=== PATIENT | male | born 1945 | race Caucasian/White ===

== ENCOUNTER 2017-10-05 16:13 | Emergency (ER) | payer MEDICARE, OTHER ==
[2017-10-05] MEDS ORDERED: DIPHTH,PERTUSS(ACELL),TET VAC 0.5 ML VIAL IM ONE ×2 (16:45→16:54)
[2017-10-05 17:03] VITALS: BP 113/64
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
== END 2017-10-05 17:02 | disposition home or self-care (01) ==
LOC: ER 16:13
PROC: 0JQJ0ZZ Repair Right Hand Subcutaneous Tissue and Fascia, Open Approach (ICD-10-PCS; principal; 2017-10-05)
DX: S61.011A Laceration without foreign body of right thumb without damage to nail, initial encounter (principal); Z87.891 Personal history of nicotine dependence; I10 Essential (primary) hypertension; I25.2 Old myocardial infarction; Z95.5 Presence of coronary angioplasty implant and graft; W22.8XXA Striking against or struck by other objects, initial encounter; Y93.89 Activity, other specified; Z23 Encounter for immunization

== ENCOUNTER 2021-01-23 11:05 | Inpatient (IN) ==
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
[2021-01-23 12:02] LABS: Hematocrit 43.6 % (42.0-52.0); Hemoglobin 15.1 gm/dL (13.5-18.0); Mean Cell Volume 101.4 fl (78-100); Mean Corpuscular Hemoglobin 35.1 pg (27-31); Mean Corpuscular Hgb Conc 34.6 g/dl (32-36); Mean Platelet Volume 8.1 fl (8-11.3); Neutrophil # 2.6 K/mm3 (1.3-6.0); Neutrophil % 50.3 % (42-75.0); Platelet Count 169 K/mm3 (150-450); Red Cell Distribution Width 13.1 % (11.5-14.0); White Blood Count 5.2 K/mm3 (4.0-10.5)
[2021-01-23] MEDS ORDERED: ACETAMINOPHEN 1,000 MG/100 ML BTL IV ONE (12:02)
[2021-01-23 12:21] LABS: Albumin * 3.6 gm/dl (3.4-5.0); Anion Gap 9.2 mmol/L (6.8-13.8); BUN/Creatinine Ratio 6.8 (9.0-21.6); Ca. Corrected For Albumin 8.5 mg/dL (8.4-10.2); Calcium * 8.5 mg/dL (7.9-10.9); Potassium 4.2 mmol/L (3.4-4.6); Total Protein 6.9 gm/dL (6.2-8.2)
--- NOTE | 2021-01-23 12:38 | CONS ---
- Reason for consultation (1) Closed intertrochanteric fracture of left hip Date of Service: 01/23/21 Reason for Consultation:: Pritesh presents to the emergency department with left hip pain after slipping on the ice and falling. He was unable to bear weight. He denies any other injuries. He was evaluated by Dr. Tate and x-rays obtained confirmed a displaced intertrochanteric left hip fracture. He is being admitted to Dr. Le's medical service. He has no other complaints at this time. HPI - History of Present Illness Allergies/Adverse Reactions: Allergies No Known Drug Allergies Allergy (Verified 01/23/21 11:14) Home Medications: Home Medications Medication Instructions Recorded Last Taken Folic Acid 1 mg PO DAILY 03/09/14 Unknown Nitroglycerin [Nitrostat] 0.4 mg SUBLINGUAL PRN PRN 03/09/14 07/31/18 Losartan Potassium [Cozaar] 25 mg PO DAILY 10/06/16 Unknown Carbamazepine [Carbamazepine ER] 800 mg PO DAILY 10/05/17 Unknown levETIRAcetam [Levetiracetam] 250 mg PO BID 10/05/17 Unknown Aspirin 81 mg PO DAILY 07/31/18 Unknown adalimumab 40 mg/0.8 mL 40 mg SUBCUT Q2W 11/02/18 Unknown subcutaneous syringe kit diclofenac sodium 1 % topical gel 2 g TP QID 11/16/18 Unknown triamcinolone acetonide 0.1 % 1 applic TP BID 11/16/18 Unknown topical cream atorvastatin 80 mg tablet 40 mg PO DAILY tab 02/24/19 Unknown cetirizine 10 mg tablet 10 mg PO DAILY #30 tab 11/02/19 Unknown Cyclobenzaprine HCl [Flexeril] 10 mg PO TID PRN #15 tab 10/06/20 Unknown metoprolol succinate 100 mg 75 mg PO DAILY tab 10/12/20 Unknown tablet,extended release 24 hr Procedures Closure of skin and subcutaneous tissue of other sites (07/25/07) Excision of Liver, Percutaneous Approach, Diagnostic (04/25/17) Fasciotomy of hand (03/16/14) Linear repair of laceration of eyelid or eyebrow (08/08/07) Other fasciectomy of hand (09/15/08) Repair Right Hand Subcutaneous Tissue and Fascia, Open Approach (10/05/17) Rotator cuff repair (12/17/10) Physical Examination - Exam Narrative: Patient is lying on gurney. He is comfortable at this time. His left inguinal pain with logroll test. He has tenderness to palpation in the left inguinal area. He reports no knee discomfort with palpation left lower extremity pain or foot or ankle pain with palpation. He is able to plantarflex and dorsiflex the left ankle. He reports sensation intact to touch. He has got palpable pulses in the left lower extremity. X-rays reviewed show a displaced intertrochanteric left hip fracture. Vital Signs: Vital Signs - Last Taken Temp 36.1 C 01/23/21 11:05 Pulse 86 01/23/21 11:44 Resp 13 01/23/21 11:44 BP 160/88 H 01/23/21 11:44 Pulse Ox 96 01/23/21 11:44 O2 Oxygen Delivery Method Room Air - Results and Findings: Lab/Microbiology results last 24 hrs: Abnormal/Pending Laboratory Last 24 HRS 01/23/21 01/23/21 11:56 11:56 RBC 4.30 L MCV 101.4 H MCH 35.1 H Monocytes % 15.9 H Eosinophils % 3.7 H Sodium 128 L Plasma Sodium 128 L Chloride 95 L BUN/Creatinine Ratio 6.8 L Random Glucose 121 H Creatine Kinase 260 H - Assessments/Findings (1) Closed intertrochanteric fracture of left hip Diagnosis(s): Pending medical evaluation, plan is for closed reduction cephalomedullary internal fixation left intertrochanteric hip fracture. Patient have a light breakfast tomorrow morning. He will be n.p.o. after this with surgery tentatively late afternoon. He will need 6 weeks of anticoagulation postoperatively. Problem: Acute
[2021-01-23] MEDS ORDERED: NORMAL SALINE 1,000 ML IV ONE (12:42)
[2021-01-23] MEDS ORDERED: MORPHINE SULFATE 2 MG/ML DISP.SYRIN IV ONE (12:43)
[2021-01-23] MEDS ORDERED: MORPHINE SULFATE 4 MG/ML SYRG IV PRN (13:27)
[2021-01-23] MEDS ORDERED: HYDROcodone/ACETAMINOPHEN 1 EACH TABLET PO PRN (13:27)
[2021-01-23] MEDS ORDERED: ONDANSETRON HCL/PF 2 MG/ML VIAL IV PRN (13:27)
[2021-01-23] MEDS: MORPHINE SULFATE 2 MG/ML DISP.SYRIN IV PRN ×3 (14:23→20:54)
--- NOTE | 2021-01-23 17:24 | HP ---
Chief Complaint - Chief Complaint Date of Service: 01/23/21 Time of Service: 17:23 Chief Complaint: LLE pain, fall History of Present Illness: 75-year-old male with history of seizure disorder, coronary artery disease, hyperlipidemia, hypertension, hypothyroidism presented to the ER after a ground- level fall that resulted in left-sided hip pain. Patient was unable to bear weight at that time. Patient states he slipped on the ice which during these conditions is understandable. Did not hit his head, did not lose consciousness. No head or neck pain. In the ER x-ray showed him to have a left intertrochanteric hip fracture which was evaluated by our Ortho team who plan on repairing this tomorrow. Lab work fairly unremarkable for him, he does have a history of hyponatremia which was again apparent today. Patient was given some fluids which hopefully will bring this up but he will need this repeated in the morning tomorrow. Otherwise the rest of his blood work was unremarkable. He was negative for Covid. When examined, he was uncomfortable which was likely due to repositioning from the ER bed to the hospital bed. Patient is left lower extremity has normal sensory, normal blood flow. Externally rotated. Otherwise his vital signs are stable and he is in agreement with repairing this hip. Medical History (Last Reviewed 01/24/21 @ 08:03 by King Bradley CRNA) Bilateral cataracts (Chronic) Bilateral carotid bruits (Acute) Scrotal abscess (Acute) Resolving nicely with antibiotics. Dysuria (Chronic) Hyponatremia (Acute) 129 Labyrinthitis (Acute) Left shoulder pain (Chronic) Having CT arthrogram next week. At [facility]. UTI (urinary tract infection) (Acute) Prostatism (Chronic) Nocturia (Chronic) He is up multiple times per night because it is not adequately emptying his bladder. Seizure (Resolved) Myocardial infarction (Resolved) Dupuytren's contracture (Acute) Coronary artery disease (Chronic) Arthritis (Chronic) Hyperlipidemia (Chronic) Hypertension (Chronic) Surgical History: Surgical History (Last Reviewed 01/24/21 @ 08:03 by King Bradley CRNA) H/O transurethral resection of prostate Onset Date: ~08/04/19 Dr Delgadillo-[facility] H/O angioplasty Onset Date: ~2005 2005 Hx of colonoscopy Onset Date: ~2005 Normal Hx of hand surgery bilateral Hx of heart artery stent Onset Date: ~2005 Hx of shoulder surgery left shoulder x's 3: Dr. Shankar and x's 2 Dr. Perry Family History: Family History (Last Reviewed 01/24/21 @ 08:04 by King Bradley CRNA) Father Prostate cancer Mother Degenerative disc disease Social History: (Last Reviewed 01/23/21 @ 17:15 by Sushant Purvis RN) Social History: adopted: No foster care: No long-term: No Marital status: lives independently: No household members: spouse number of children: 2 caregiver/support person: No current occupational status: retired current occupation: retired Highest level of school completed/degree received: high school graduate Service: Yes branch: [employer] Tobacco: Smoking Status: Former smoker Smoking Status comment: quit 50 year Alcohol: alcohol intake: never Substance Use: substance use type: does not use Dietary Habits: caffeine: No Review Of Systems (GEN) - Review of Systems Generalized/Overall Review: Present: No Symptoms Reported EENTM: Present: No Symptoms Reported Respiratory: Present: No Symptoms Reported Cardiac: Present: No Symptoms Reported Abdominal: Present: No Symptoms Reported Genitourinary: Present: No Symptoms Reported Musculoskeletal: Present: Joint Pain - Left hip Neurological: Absent: Numbness, Tingling, Weakness Skin: Present: No Symptoms Reported Endocrine: Present: No Symptoms Reported Immunizations: IMMUNIZATION HX Immunizations Up to Date Yes History of Influenza Vaccine Yes Hx Pneumococcal Vaccination Yes Allergies/Adverse Reactions: Allergies Allergy/AdvReac Type Severity Reaction Status Date / Time No Known Drug Allergies Allergy Verified 01/23/21 11:14 Home Medications: HOME MEDICATIONS Folic Acid 1 mg PO DAILY 03/09/14 [Last Taken Unknown] Nitroglycerin [Nitrostat] 0.4 mg SUBLINGUAL PRN PRN 03/09/14 [Last Taken 07/31/18] Losartan Potassium [Cozaar] 25 mg PO DAILY 10/06/16 [Last Taken Unknown] levETIRAcetam [Levetiracetam] 250 mg PO BID 10/05/17 [Last Taken Unknown] Aspirin 81 mg PO DAILY 07/31/18 [Last Taken Unknown] adalimumab 40 mg/0.8 mL subcutaneous syringe kit 40 mg SUBCUT Q2W 11/02/18 [Last Taken Unknown] atorvastatin 80 mg tablet 80 mg PO HS tab 02/24/19 [Last Taken Unknown] metoprolol succinate 100 mg tablet,extended release 24 hr 75 mg PO DAILY tab 10/12/20 [Last Taken Unknown] carBAMazepine [Tegretol] 800 mg PO HS 01/23/21 [Last Taken Unknown] Exam - Exam Vital Signs: Vital Signs - Last Taken Temp 36.6 C 01/23/21 14:40 Pulse 87 01/23/21 14:40 Resp 20 01/23/21 14:40 BP 163/88 H 01/23/21 14:40 Pulse Ox 92 L 01/23/21 14:40 Constitutional: Present: Alert, Oriented x3, Cooperative, Mild distress - Due to left hip pain, Elderly ENT Exam: Present: hearing grossly normal Eye Exam: bilateral eye: normal inspection, EOMI Neck: Present: non-tender, full range of motion, supple Respiratory: Present: lungs clear, normal breath sounds Cardiovascular/Chest: Present: regular rate, rhythm, no murmur Peripheral Pulses: dorsalis-pedis (R): 2+, dorsalis-pedis (L): 2+ Abdomen: Present: soft, nontender, nondistended Extremity: Present: normal capillary refill, leg pain Skin Exam: Present: normal color, warm/dry Neurologic: Present: no motor/sensory deficits, normal mood/affect Appearance: Present: appropriate appearance, appropriate insight Eye contact: Present: cooperative, good eye contact Thoughts: Present: normal thought pattern, normal mood /affect Diagnostic Studies: Abnormal Lab Results 01/23/21 01/23/21 Range/Units 11:56 11:56 RBC 4.30 L (4.7-6.0) M/mm3 MCV 101.4 H (78-100) fl MCH 35.1 H (27-31) pg Monocytes % 15.9 H (0.0-9) % Eosinophils % 3.7 H (0.0-3.0) % Sodium 128 L (132-142) mmol/L Plasma Sodium 128 L (130-142) mmol/L Chloride 95 L (97-106) mmol/L BUN/Creatinine Ratio 6.8 L (9.0-21.6) Random Glucose 121 H (70-110) mg/dL Creatine Kinase 260 H (0-259) U/L Laboratory Results WBC 5.2 K/mm3 (4.0-10.5) 01/23/21 11:56 RBC 4.30 M/mm3 (4.7-6.0) L 01/23/21 11:56 Hgb 15.1 gm/dL (13.5-18.0) 01/23/21 11:56 Hct 43.6 % (42.0-52.0) 01/23/21 11:56 MCV 101.4 fl (78-100) H 01/23/21 11:56 MCH 35.1 pg (27-31) H 01/23/21 11:56 MCHC 34.6 g/dl (32-36) 01/23/21 11:56 RDW 13.1 % (11.5-14.0) 01/23/21 11:56 Plt Count 169 K/mm3 (150-450) 01/23/21 11:56 MPV 8.1 fl (8-11.3) 01/23/21 11:56 Immature Gran % (Auto) 0.40 % (0.001-0.429) 01/23/21 11:56 Immature Gran # (Auto) 0.02 K/mm3 (0.000-0.0310) 01/23/21 11:56 Neutrophils % 50.3 % (42-75.0) 01/23/21 11:56 Lymphocytes % 29.1 % (20-51) 01/23/21 11:56 Monocytes % 15.9 % (0.0-9) H 01/23/21 11:56 Eosinophils % 3.7 % (0.0-3.0) H 01/23/21 11:56 Basophils % 0.6 % (0.0-1.0) 01/23/21 11:56 Nucleated RBC % 0.0 k/mm3 (0-1) 01/23/21 11:56 Neutrophils # 2.6 K/mm3 (1.3-6.0) 01/23/21 11:56 Lymphocytes # 1.50 k/mm3 (1.5-3.5) 01/23/21 11:56 Monocytes # 0.8 k/mm3 (0.0-1.0) 01/23/21 11:56 Eosinophils # 0.2 k/mm3 (0.0-0.7) 01/23/21 11:56 Absolute Basophils 0.0 k/mm3 (0.0-0.1) 01/23/21 11:56 Sodium 128 mmol/L (132-142) L 01/23/21 11:56 Plasma Sodium 128 mmol/L (130-142) L 01/23/21 11:56 Potassium 4.2 mmol/L (3.4-4.6) 01/23/21 11:56 Chloride 95 mmol/L (97-106) L 01/23/21 11:56 Carbon Dioxide 28.0 mmol/L (24-32.6) 01/23/21 11:56 Anion Gap 9.2 mmol/L (6.8-13.8) 01/23/21 11:56 BUN 7 mg/dL (6-23) 01/23/21 11:56 Creatinine 1.03 mg/dL (0.4-1.4) 01/23/21 11:56 Est GFR (Non-Af Amer) 75 mL/min (60-130) 01/23/21 11:56 BUN/Creatinine Ratio 6.8 (9.0-21.6) L 01/23/21 11:56 Random Glucose 121 mg/dL (70-110) H 01/23/21 11:56 Calcium 8.5 mg/dL (7.9-10.9) 01/23/21 11:56 Calcium Adj for Albumin 8.5 mg/dL (8.4-10.2) 01/23/21 11:56 Total Bilirubin 1.0 mg/dL (0.0-1.1) 01/23/21 11:56 AST 41 U/L (0-48) 01/23/21 11:56 ALT 63 U/L (19-67) 01/23/21 11:56 Alkaline Phosphatase 123 U/L (50-170) 01/23/21 11:56 Creatine Kinase 260 U/L (0-259) H 01/23/21 11:56 Total Protein 6.9 gm/dL (6.2-8.2) 01/23/21 11:56 Albumin 3.6 gm/dl (3.4-5.0) 01/23/21 11:56 SARS-CoV-2 (PCR) Not detected (NotDetected) 01/23/21 12:00 Assessment/Plan - Narrative Narrative: Plan is for patient to go back for repair tomorrow early afternoon. Patient has been seen and evaluated by orthopedics and has no questions or concerns regarding that. From medical standpoint this is a necessity and so despite risk factors patient is cleared to undergo surgery. I do not anticipate any complications as this patient is in fairly good health and has had routine follow-up with cardiology and his previous PCPs. Patient's lab work shows him to not be anemic and he has normal kidney function. He is slightly hyponatremic though and we will repeat this in the morning. After reviewing his records this is not abnormal for him and he ranges anywhere from 128-132. After surgery we will address this and see if we can get him up just a little bit prior to discharge. Pain not adequately controlled on 2 mg of morphine. Will order 4 mg of morphine with 2 mg for breakthrough pain. I think patient will need 1 dose of the 4 mg and once he is comfortable he then can return back to the 2 mg. The rest of his medications have been reconciled and will be given tonight. Patient will be made n.p.o. early tomorrow morning, per Ortho he can have a light breakfast. He will get a bag of fluids after that. The rest of the medications will be held at that time Until following surgery. Patient has SCDs on a bed for DVT prophylaxis. Patient is regular diet ordered until n.p.o. status starts. Holding his aspirin. Nurse will call with any questions or concerns. So far his vital signs been stable. Patient questions and concerns discussed in detail and answered to his satisfaction. - Assessment/Plan (1) Closed intertrochanteric fracture of left hip Problem: Acute (2) Pre-Operative Examination Problem: Acute (3) Hyponatremia Problem: Acute (4) Seizure disorder Problem: Chronic (5) CAD (coronary artery disease) Problem: Chronic Qualifiers: Coronary Disease-Associated Artery/Lesion type: morongo artery [place] vs. transplanted heart: morongo heart Associated angina: without angina Qualified Code(s): I25.10 - Atherosclerotic heart disease of morongo coronary artery without angina pectoris (6) Hyperlipidemia Problem: Chronic Qualifiers: Hyperlipidemia type: pure hypercholesterolemia Qualified Code(s): E78.00 - Pure hypercholesterolemia, unspecified; E78.0 - Pure hypercholesterolemia (7) Hypertension Problem: Chronic Qualifiers: Hypertension type: essential hypertension Qualified Code(s): I10 - Essential (primary) hypertension (8) Hyperlipidemia Problem: Chronic Qualifiers: Hyperlipidemia type: mixed hyperlipidemia Qualified Code(s): E78.2 - Mixed hyperlipidemia
[2021-01-23] MEDS: MORPHINE SULFATE 4 MG/ML SYRG IV PRN (18:03)
[2021-01-23] MEDS: ROSUVASTATIN CALCIUM 20 MG TABLET PO SCH (20:47)
[2021-01-23] MEDS: carBAMazepine 200 MG TABLET PO SCH (20:48)
[2021-01-23] MEDS: levETIRAcetam 250 MG TABLET PO SCH (20:48)
[2021-01-23] MEDS: SENNOSIDES/DOCUSATE SODIUM 1 TAB TABLET PO SCH (20:54)
[2021-01-23] MEDS ORDERED: ACETAMINOPHEN 500 MG TABLET PO PRN (23:51)
[2021-01-24] MEDS: MORPHINE SULFATE 4 MG/ML SYRG IV PRN (02:07)
[2021-01-24] MEDS ORDERED: ceFAZolin SODIUM 1 GM VIAL IV PRN (06:00)
[2021-01-24] MEDS: RINGER'S SOLUTION,LACTATED 1,000 ML IV PRN ×3 (06:00→13:15)
--- NOTE | 2021-01-24 08:08 | ANES ---
Anesthesia Pre Procedure Eval Vitals/Labs: Last Vital Signs Temp 37 C 01/24/21 06:08 Pulse 92 01/24/21 06:08 Resp 18 01/24/21 06:08 BP 144/82 01/24/21 06:08 Pulse Ox 93 01/24/21 06:08 HOME MEDICATIONS Folic Acid 1 mg PO DAILY 03/09/14 [Last Taken Unknown] Nitroglycerin [Nitrostat] 0.4 mg SUBLINGUAL PRN PRN 03/09/14 [Last Taken 07/31/18] Losartan Potassium [Cozaar] 25 mg PO DAILY 10/06/16 [Last Taken Unknown] levETIRAcetam [Levetiracetam] 250 mg PO BID 10/05/17 [Last Taken Unknown] Aspirin 81 mg PO DAILY 07/31/18 [Last Taken Unknown] adalimumab 40 mg/0.8 mL subcutaneous syringe kit 40 mg SUBCUT Q2W 11/02/18 [Last Taken Unknown] atorvastatin 80 mg tablet 80 mg PO HS tab 02/24/19 [Last Taken Unknown] metoprolol succinate 100 mg tablet,extended release 24 hr 75 mg PO DAILY tab 10/12/20 [Last Taken Unknown] carBAMazepine [Tegretol] 800 mg PO HS 01/23/21 [Last Taken Unknown] Allergies/Adverse Reactions: Allergies Allergy/AdvReac Type Severity Reaction Status Date / Time No Known Drug Allergies Allergy Verified 01/23/21 11:14 - Planned Procedure Planned Procedure: Left hip fracture reduction/fixation Medication List Reviewed:: Yes Allergies Verified: Yes Medical History (Last Reviewed 01/24/21 @ 08:03 by King Bradley CRNA) Bilateral cataracts (Chronic) Bilateral carotid bruits (Acute) Scrotal abscess (Acute) Resolving nicely with antibiotics. Dysuria (Chronic) Hyponatremia (Acute) 129 Labyrinthitis (Acute) Left shoulder pain (Chronic) Having CT arthrogram next week. At [facility]. UTI (urinary tract infection) (Acute) Prostatism (Chronic) Nocturia (Chronic) He is up multiple times per night because it is not adequately emptying his bladder. Seizure (Resolved) Myocardial infarction (Resolved) Dupuytren's contracture (Acute) Coronary artery disease (Chronic) Arthritis (Chronic) Hyperlipidemia (Chronic) Hypertension (Chronic) Surgical History (Last Reviewed 01/24/21 @ 08:03 by King Bradley CRNA) H/O transurethral resection of prostate Onset Date: ~08/04/19 Dr Delgadillo-[facility] H/O angioplasty Onset Date: ~2005 2005 Hx of colonoscopy Onset Date: ~2005 Normal Hx of hand surgery bilateral Hx of heart artery stent Onset Date: ~2005 Hx of shoulder surgery left shoulder x's 3: Dr. Shankar and x's 2 Dr. Perry Family History (Last Reviewed 01/24/21 @ 08:04 by King Bradley CRNA) Father Prostate cancer Mother Degenerative disc disease - Family Anesthesia History Family History:: no untoward family reactions to anesthesia, no familial bleeding tendencies, no family history of clotting disorders, no family history of premature - Airway/Neck/Teeth Within Normal Limits:: Yes Teeth Condition: intact, poor condition Neck Exam: full range of motion Mallampatti Score: 3 Thyromental (T-M) distance: > 6 cm Mandibulo Hyoid distance: > 3 cm - Respiratory Respiratory Physical: lungs clear Smoking Status: Former smoker - quit 50 year Sleep Apnea currently treated: No Sleep Apnea by current assessment: No - Cardiovascular Cardiac History: hypertension Tolerate Activity: Poor Heart Sounds: S1 & S2, Regular - Gastrointestinal NPO since: 0 - Anesthesia Assessment and Plan ASA Class: PS, III Anesthesia Type Plan: Spinal
[2021-01-24 09:06] LABS: Anion Gap 9.8 mmol/L (6.8-13.8); BUN/Creatinine Ratio 5.6 (9.0-21.6); Calcium * 8.3 mg/dL (7.9-10.9); Carbon Dioxide 28.1 mmol/L (24-32.6); Estimated Creat Clear 71.5; Potassium 3.9 mmol/L (3.4-4.6)
[2021-01-24] MEDS: METOPROLOL SUCCINATE 25 MG TABLET.SA PO SCH (10:22)
[2021-01-24] MEDS: LOSARTAN POTASSIUM 50 MG TABLET PO SCH (10:22)
[2021-01-24] MEDS: levETIRAcetam 250 MG TABLET PO SCH ×2 (10:22→20:19)
[2021-01-24] MEDS ORDERED: NORMAL SALINE 20 ML VIAL ONE (11:10)
[2021-01-24] MEDS ORDERED: BUPIVACAINE HCL/PF 10 ML VIAL ONE (11:10)
[2021-01-24] MEDS ORDERED: PROPOFOL VIAL IV ONE (11:10)
[2021-01-24] MEDS ORDERED: MIDAZOLAM HCL/PF 5 MG/ML VIAL ONE (11:10)
--- NOTE | 2021-01-24 12:28 | OR ---
Operative Report - Dictated Report Narrative: Date: 01/24/2021 Surgeon: Dinesh Shetty M.D. Library Supervisor: Raad Chino PA-C (provided an essential set of skilled educated handset assisted with transfer, positioning, prepping, draping, placement of instruments, insertion of implants, irrigation, closure wounds, and placement of dressings all which could not be performed by the available surgical crew) Preoperative diagnosis: Closed left intertrochanteric femur fracture Postoperative diagnosis: Closed left intertrochanteric femur fracture Operations and procedures: 1. Closed reduction, cephalo-medullary fixation left intertrochanteric femur fracture 2. Intraoperative interpretation of radiographs Anesthesia: Spinal Specimens: None Estimated blood loss: 25 milliliters Retained implants: [employer] Trigen InterTAN 130 degree size 11.5 mm by 20 centimeter nail with 105 millimeter lag screw and 100 millimeter compression screw, with distal locking screw Complications: None Indications for procedure: Mr. Heredia is a 75-year-old gentleman who injured the left leg after ground- level fall in the community. They were admitted to the hospital after being evaluated in the emergency department. Once the medical provider felt that they were stable for surgical treatment, the risks and benefits alternatives were discussed. The risks of , blood clots, bleeding, infection, nerve/tendon/blood vessel injury, malunion, nonunion, failure of implants, painful implants, arthrosis, and need for additional procedures were discussed. The extremity was marked and consent was obtained on the floor. Procedure: After marking the operative extremity on the floor, the patient was taken to the operating room. A timeout was performed. IV antibiotics consisting of Ancef were administered. A spinal anesthetic was induced by anesthesia, and the patient was then placed onto a fracture table with a well-padded perineal post. The nonoperative leg was placed in a well-padded traction boot in slight extension without any traction with an SCD on the leg. The operative leg was placed in a well-padded traction boot. Longitudinal traction, internal rotation, and flexion were utilized in order to reduce the fracture. Preliminary images were attained utilizing C-arm in both the AP and lateral views. This confirmed that we had obtained adequate visualization of the fracture as well as reduction. Next the hip was then prepped and draped in a standard sterile fashion. Next the guidewire was placed percutaneously proximal to the greater trochanter to anastacia a starting point at the tip of the greater trochanter centered on the lateral view. This was passed down to the level below the lesser trochanter. A scalpel was utilized in order to dissect down to the greater trochanter in order to place the soft tissue protector down to bone. The entry drill was then placed down the proximal femur to the level of the lesser trochanter. The proper size nail was then selected and impacted into place. The outrigger was utilized in order to confirm the appropriate depth of the nail. Using the alignment device on the outrigger, an incision was made over the lateral femur. Sharp dissection was carried through the iliotibial band down to the proximal femur. The guidewire was placed into the femoral head in a center- center position on AP and lateral views. The tip-apex distance of less than 25 mm combined was obtained. Once we felt that we had placed a guidewire in the appropriate position, it was measured. Next the compression screw site was drilled through the lateral femoral cortex. This was then drilled down to the appropriate depth, again confirming that we are within the confines the bone. The derotational bar was then placed and the lag screw was drilled. The lag screw was then secured in place seating fully ensuring that we were within the confines of the bone. The compression screw was then inserted allowing for compression while releasing the traction on the leg. Using C-arm this was visualized to allow for compression across the fracture site. Once is felt that we had adequately stabilized the intertrochanteric fracture, the distal interlocking screw was placed in a dynamic position. It was confirmed to be the appropriate length and within the nail on both AP and lateral views. The nail was secured allowing for controlled compression and the outrigger was removed. The wounds were then thoroughly irrigated. Final images were obtained. The hip was placed through range of motion and showed no crepitance. The deep fascia was closed with 0 Vicryl, the subcutaneous tissue with 3-0 Vicryl, and the skin was closed with olga. Sterile dressings of Xeroform, 4 x 4, and tape were applied. All sponge, sharp, and instrument counts were correct prior to closing the wounds. The patient was then awoken and transferred to the postanesthesia care unit in stable condition.
[2021-01-24] MEDS ORDERED: MAGNESIUM HYDROXIDE 30 ML UDC PO PRN (12:29)
[2021-01-24] MEDS ORDERED: diphenhydrAMINE HCL 50 MG/ML VIAL IV PRN (12:29)
[2021-01-24] MEDS ORDERED: ZOLPIDEM TARTRATE 5 MG TABLET PO PRN (12:29)
[2021-01-24] MEDS ORDERED: MAG HYDROX/ALUMINUM HYD/SIMETH 30 ML UDC PO PRN (12:29)
--- NOTE | 2021-01-24 13:16 | ANES ---
Post Anesthesia Discharge - Transfer of Care Transfer of Care handoff given to nurse: Yes - Discharge from PACU Discharge from PACU when meets criteria: Yes
--- NOTE | 2021-01-24 13:27 | ANES ---
Post Anesthesia Assessment - Vital Signs Vitals: Last Vital Signs Temp 36.0 C 01/24/21 12:40 Pulse 82 01/24/21 13:25 Resp 14 01/24/21 13:25 BP 85/48 L 01/24/21 13:25 Pulse Ox 96 01/24/21 13:25 Airway Patency: Normal - Mental Status Level Of Consciousness: Awake - Pain Level Pain Score: 0 - N/V Assessment Nausea/Vomiting Presence: None Dehydration:: No
[2021-01-24] MEDS: ceFAZolin SODIUM 1 GM in DEXTROSE 5 % IN WATER 100 ML IV SCH ×4 (13:56→20:17)
[2021-01-24] MEDS: KETOROLAC TROMETHAMINE 15 MG/ML VIAL IV SCH ×2 (13:57→19:03)
[2021-01-24] MEDS: NORMAL SALINE 1,000 ML IV PRN ×2 (15:30→23:04)
[2021-01-24] MEDS: HYDROcodone/ACETAMINOPHEN 1 EACH TABLET PO PRN (17:06)
--- NOTE | 2021-01-24 18:33 | PN ---
Subjective - Date and Time Seen Date: 01/24/21 Time: 18:26 Subjective Narrative: Patient is very comfortable at this time. Surgery was successful and he states his pain is much better than it was prior to the repair. Patient feels well and is already asking home. Vital signs been stable. Patient's lab work from this morning showed his hyponatremia to be slightly worse. Patient started on normal saline at 150 an hour x2 bags. Kidney function is appropriate for this. We will also start salt tablets this evening. Patient will be started on Xarelto for his anticoagulation. Otherwise he has no concerns and feels well at this time. Objective - Review of Systems Generalized/Overall Review: Reports: No Symptoms Reported EENTM: Reports: No Symptoms Reported Respiratory: Reports: No Symptoms Reported Cardiac: Reports: No Symptoms Reported Abdominal: Reports: No Symptoms Reported Genitourinary Symptoms: Reports: No Symptoms Reported Musculoskeletal Complaints: Reports: Joint Pain - Left hip is achy Neurological: Reports: No Symptoms Reported Skin: Reports: No Symptoms Reported - Vitals Vitals: Last Vital Signs Temp 36.4 C 01/24/21 16:34 Pulse 79 01/24/21 17:37 Resp 16 01/24/21 17:37 BP 132/93 H 01/24/21 17:37 Pulse Ox 98 01/24/21 17:37 - Abnormal Lab Findings Abnormal Lab Findings: Abnormal Lab Results 01/24/21 Range/Units 08:45 Sodium 126 L (132-142) mmol/L Plasma Sodium 126 L (130-142) mmol/L Chloride 92 L (97-106) mmol/L BUN 5 L (6-23) mg/dL BUN/Creatinine Ratio 5.6 L (9.0-21.6) Random Glucose 128 H (70-110) mg/dL - Exam Constitutional: Present: Alert, Oriented x3, Cooperative, No distress, Elderly ENT Exam: Present: hearing grossly normal. Absent: nasal congestion, nasal drainage Neck: Present: non-tender, supple Respiratory: Present: lungs clear, normal breath sounds Cardiovascular/Chest: Present: regular rate, rhythm, no murmur Abdomen: Present: soft, nontender, nondistended Extremity: Present: normal capillary refill. Absent: leg pain, pedal edema Skin Exam: Present: normal color, warm/dry Appearance: Present: appropriate appearance, appropriate insight Eye contact: Present: cooperative, good eye contact Thoughts: Present: normal thought pattern, normal mood /affect Cauti Physician Documentation - Urinary Catheter Management Urethral (Breen) Date of Insertion: 01/24/21 Time of Insertion: 02:19 Assessment/Plan Plan Narrative: Patient recently returned from having his left intertrochanteric hip fracture repaired by orthopedic team. Patient is in good spirits and feels well. Patient states his pain is much better controlled even without receiving his oral pain medicine at this time. This is currently being received for him by nursing staff. Patient will need anticoagulation for the next 6 weeks, looks like Xarelto will be what we will try to get approved for him which I think would be best due to his medical history. I think be difficult for him to manage Coumadin at this time. Patient is hyponatremic again today, was 126 this morning down from 128 upon admission. Patient currently on normal saline at 150 an hour. 1 g of sodium chloride. All his chronic medications have been restarted. Patient has no concerns in regards to this at this time. SCDs still worn for DVT prophylaxis. Patient's diet restarted. BMP and hemogram ordered for the morning. Overall patient feels well, is stable. Nurses will call with any questions or concerns. PT to evaluate patient the morning. - Problems/Diagnosis (1) Closed intertrochanteric fracture of left hip Problem: Acute (2) Pre-Operative Examination Problem: Acute (3) Hyponatremia Problem: Acute (4) Seizure disorder Problem: Chronic (5) CAD (coronary artery disease) Problem: Chronic Qualifiers: Coronary Disease-Associated Artery/Lesion type: [place] artery [place] vs. transplanted heart: [place] heart Associated angina: without angina Qualified Code(s): I25.10 - Atherosclerotic heart disease of [place] coronary artery without angina pectoris (6) Hyperlipidemia Problem: Chronic Qualifiers: Hyperlipidemia type: pure hypercholesterolemia Qualified Code(s): E78.00 - Pure hypercholesterolemia, unspecified; E78.0 - Pure hypercholesterolemia (7) Hypertension Problem: Chronic Qualifiers: Hypertension type: essential hypertension Qualified Code(s): I10 - Essen tial (primary) hypertension (8) Hyperlipidemia Problem: Chronic Qualifiers: Hyperlipidemia type: mixed hyperlipidemia Qualified Code(s): E78.2 - Mixed hyperlipidemia
[2021-01-24] MEDS: MORPHINE SULFATE 2 MG/ML DISP.SYRIN IV PRN (20:13)
[2021-01-24] MEDS: SODIUM CHLORIDE 1 GM TABLET PO SCH (20:17)
[2021-01-24] MEDS: ROSUVASTATIN CALCIUM 20 MG TABLET PO SCH (20:18)
[2021-01-24] MEDS: carBAMazepine 200 MG TABLET PO SCH (20:19)
[2021-01-24] MEDS: SENNOSIDES/DOCUSATE SODIUM 1 TAB TABLET PO SCH (20:19)
[2021-01-25] MEDS: KETOROLAC TROMETHAMINE 15 MG/ML VIAL IV SCH ×4 (00:52→18:49)
[2021-01-25] MEDS: ceFAZolin SODIUM 1 GM in DEXTROSE 5 % IN WATER 100 ML IV SCH ×2 (02:32)
[2021-01-25] MEDS: HYDROcodone/ACETAMINOPHEN 1 EACH TABLET PO PRN ×2 (06:02→12:02)
[2021-01-25 06:29] LABS: Hematocrit 35.4 % (42.0-52.0); Hemoglobin 12.9 gm/dL (13.5-18.0); Mean Corpuscular Hemoglobin 35.3 pg (27-31); Mean Corpuscular Hgb Conc 36.4 g/dl (32-36); Platelet Count 120 K/mm3 (150-450); Red Blood Count 3.65 M/mm3 (4.7-6.0); Red Cell Distribution Width 12.5 % (11.5-14.0)
[2021-01-25 06:41] LABS: Anion Gap 9.1 mmol/L (6.8-13.8); BUN/Creatinine Ratio 6.9 (9.0-21.6); Calcium * 7.9 mg/dL (7.9-10.9); Carbon Dioxide 27.8 mmol/L (24-32.6); Potassium 3.9 mmol/L (3.4-4.6)
[2021-01-25] MEDS: RIVAROXABAN 20 MG TABLET PO SCH (09:35)
[2021-01-25] MEDS: METOPROLOL SUCCINATE 25 MG TABLET.SA PO SCH (09:35)
[2021-01-25] MEDS: levETIRAcetam 250 MG TABLET PO SCH ×2 (09:35→20:05)
[2021-01-25] MEDS: LOSARTAN POTASSIUM 50 MG TABLET PO SCH (09:35)
[2021-01-25] MEDS: SODIUM CHLORIDE 1 GM TABLET PO SCH (09:36)
--- NOTE | 2021-01-25 10:32 | PN ---
Subjective - Date and Time Seen Date: 01/25/21 Time: 10:29 Subjective Narrative: Subjective: Reports mild discomfort. Was able to walk in the room with therapy. Pain is Slept well. Physical exam: Alert and oriented to person, place and time Left lower extremity: Palpable dorsalis pedis pulse. Sensation grossly intact to light touch. Dressings clean and dry. Able to flex and extend ankle and toes. No excessive drainage. Calf and thigh are soft and nontender. Assessment: Postop day 1 status post left hip intertrochanteric femur fracture cephalomedullary fixation Plan: Due to the need for pain control, post-operative limited mobility, protection of the surgical site and joint, monitoring of the wound, and the management of chronic medical conditions, he requires continued inpatient care. Continue with physical and occupational therapy weightbearing as tolerated. Continue with anticoagulation-he will need 6 weeks of anticoagulation for DVT prophylaxis. 24 hours postoperative prophylactic antibiotics. Pain control with goal to rely on oral medications. Continue bowel regimen. Will need 6 weeks with walker or assitive device to protect joint while ambulating during the recovery process. Discharge planning -from an orthopedic standpoint he can be discharged when stable. Weightbearing as tolerated with range of motion as tolerated. Keep the wound clean and dry. Follow-up in 2 weeks. Use MARK hose on surgical leg. Use assistive device. Objective - Vitals Vitals: Last Vital Signs Temp 37.6 C 01/25/21 07:16 Pulse 90 01/25/21 09:35 Resp 18 01/25/21 07:16 BP 163/78 H 01/25/21 09:35 Pulse Ox 99 01/25/21 07:16 - Abnormal Lab Findings Abnormal Lab Findings: Abnormal Lab Results 01/25/21 01/25/21 Range/Units 06:25 06:25 RBC 3.65 L (4.7-6.0) M/mm3 Hgb 12.9 L (13.5-18.0) gm/dL Hct 35.4 L (42.0-52.0) % MCH 35.3 H (27-31) pg MCHC 36.4 H (32-36) g/dl Plt Count 120 L (150-450) K/mm3 Sodium 129 L (132-142) mmol/L Plasma Sodium 129 L (130-142) mmol/L Chloride 96 L (97-106) mmol/L BUN/Creatinine Ratio 6.9 L (9.0-21.6) Random Glucose 121 H (70-110) mg/dL Cauti Physician Documentation - Urinary Catheter Management Urethral (Breen) Date of Insertion: 01/24/21 Time of Insertion: 02:19 Assessment/Plan - Problems/Diagnosis (1) Closed intertrochanteric fracture of left hip Problem: Acute Qualifiers: Encounter type: subsequent encounter Fracture alignment: displaced Fracture healing: with routine healing Qualified Code(s): S72.142D - Displaced intertrochanteric fracture of left femur, subsequent encounter for closed fr acture with routine healing
[2021-01-25] MEDS: SENNOSIDES/DOCUSATE SODIUM 1 TAB TABLET PO SCH (20:05)
[2021-01-25] MEDS: carBAMazepine 200 MG TABLET PO SCH (20:06)
[2021-01-25] MEDS: ROSUVASTATIN CALCIUM 20 MG TABLET PO SCH (20:06)
--- NOTE | 2021-01-25 22:51 | PN ---
Subjective - Date and Time Seen Date: 01/25/21 Time: 22:43 Subjective Narrative: Patient feels much better this afternoon than he did this morning. Patient states he had a difficult time with his legs but feels that they have woken up quite a bit. Normal sensory and strength. He does have some ache in his left groin which is to be expected. Pain pretty well controlled with oral medicine. Patient will likely have to go home on Coumadin as he would not be able to aff ord Xarelto or Eliquis. PT evaluated patient today and recommend SNF which I think is appropriate for his chronic medical conditions including his issues with balance and lower extremity weakness prior to falling and fracturing his hip. They are considering this and will make their decision tomorrow. Otherwise vital signs been stable. His hemoglobin did show a drop which is be expected due to acute blood loss anemia but his sodium improved from 126 to 129. Objective - Review of Systems Generalized/Overall Review: Denies: Weakness, Chills EENTM: Reports: No Symptoms Reported Respiratory: Reports: No Symptoms Reported Cardiac: Reports: No Symptoms Reported Abdominal: Reports: No Symptoms Reported Genitourinary Symptoms: Reports: No Symptoms Reported Musculoskeletal Complaints: Reports: Joint Pain - Left hip into his groin Neurological: Denies: Tingling, Weakness Skin: Reports: No Symptoms Reported - Vitals Vitals: Last Vital Signs Temp 36.7 C 01/25/21 21:47 Pulse 76 01/25/21 21:47 Resp 16 01/25/21 21:47 BP 136/68 01/25/21 21:47 Pulse Ox 95 01/25/21 21:47 - Abnormal Lab Findings Abnormal Lab Findings: Abnormal Lab Results 01/25/21 01/25/21 Range/Units 06:25 06:25 RBC 3.65 L (4.7-6.0) M/mm3 Hgb 12.9 L (13.5-18.0) gm/dL Hct 35.4 L (42.0-52.0) % MCH 35.3 H (27-31) pg MCHC 36.4 H (32-36) g/dl Plt Count 120 L (150-450) K/mm3 Sodium 129 L (132-142) mmol/L Plasma Sodium 129 L (130-142) mmol/L Chloride 96 L (97-106) mmol/L BUN/Creatinine Ratio 6.9 L (9.0-21.6) Random Glucose 121 H (70-110) mg/dL - Exam Constitutional: Present: Alert, Oriented x3, No distress, Elderly ENT Exam: Present: hearing grossly normal Respiratory: Present: lungs clear, normal breath sounds Cardiovascular/Chest: Present: regular rate, rhythm, no murmur Abdomen: Present: soft, nontender, nondistended Extremity: Present: normal capillary refill, leg pain. Absent: lower extremity edema Skin Exam: Present: normal color, warm/dry Neurologic: Present: no motor/sensory deficits, alert, normal mood/affect, oriented x 3 Appearance: Present: appropriate appearance, appropriate insight Eye contact: Present: cooperative, good eye contact Thoughts: Present: normal thought pattern, normal mood /affect Cauti Physician Documentation - Urinary Catheter Management Urethral (Breen) Date of Insertion: 01/24/21 Time of Insertion: 02:19 Assessment/Plan Plan Narrative: Status post day one of left intertrochanteric hip fracture repair. Patient's been cleared by orthopedics to go home once medically stable. Patient likely to go home on Coumadin as he cannot afford either apixaban or Eliquis. Patient also considering SNF due to physical therapy recommendations which I think is appropriate as he does have a pre-existing condition of uncoordinated lower extremities and imbalance issues though his strength and sensory has always been intact. He will make this decision by the morning time. Otherwise vital signs been stable and he states his pain is well controlled with oral medicine. He is achy in his groin though which is to be expected. Patient's hemoglobin dropped from 15.1-12.9. His sodium did improve though from 126-129. We will repeat BMP in the morning. Breen catheter has been removed. All of patient's previous home meds have been restarted. He is tolerating his diet well. Patient was started on Xarelto while here so no SCDs needed for DVT prophylaxis. Overall patient is doing well and likely will be discharged tomorrow placement is found. Nurse will call questions or concerns. - Problems/Diagnosis (1) Closed intertrochanteric fracture of left hip Problem: Acute Qualifiers: Encounter type: subsequent encounter Fracture alignment: displaced Fracture healing: with routine healing Qualified Code(s): S72.142D - Displaced intertrochanteric fracture of left femur, subsequent encounter for closed fracture with routine healing (2) Pre-Operative Examination Problem: Acute (3) Hyponatremia Problem: Acute (4) Seizure disorder Problem: Chronic (5) CAD (coronary artery disease) Problem: Chronic Qualifiers: Coronary Disease-Associated Artery/Lesion type: [place] artery [place] vs. transplanted heart: [place] heart Associated angina: without angina Qualified Code(s): I25.10 - Atherosclerotic heart disease of [place] coronary artery without angina pectoris (6) Hyperlipidemia Problem: Chronic Qualifiers: Hyperlipidemia type: pure hypercholesterolemia Qualified Code(s): E78.00 - Pure hypercholesterolemia, unspecified; E78.0 - Pure hypercholesterolemia (7) Hypertension Problem: Chronic Qualifiers: Hypertension type: essential hypertension Qualified Code(s): I10 - Essential (primary) hypertension (8) Hyperlipidemia Problem: Chronic Qualifiers: Hyperlipidemia type: mixed hyperlipidemia Qualified Code(s): E78.2 - Mixed hyperlipidemia
[2021-01-26] MEDS: KETOROLAC TROMETHAMINE 15 MG/ML VIAL IV SCH ×2 (00:05→07:32)
[2021-01-26 07:05] LABS: Anion Gap 9.9 mmol/L (6.8-13.8); BUN/Creatinine Ratio 8.2 (9.0-21.6); Calcium * 8.3 mg/dL (7.9-10.9); Estimated Creat Clear 64.9; Potassium 3.9 mmol/L (3.4-4.6)
[2021-01-26] MEDS: METOPROLOL SUCCINATE 25 MG TABLET.SA PO SCH (09:01)
[2021-01-26] MEDS: SODIUM CHLORIDE 1 GM TABLET PO SCH (09:01)
[2021-01-26] MEDS: LOSARTAN POTASSIUM 50 MG TABLET PO SCH (09:01)
[2021-01-26] MEDS: RIVAROXABAN 20 MG TABLET PO SCH (09:01)
[2021-01-26] MEDS: levETIRAcetam 250 MG TABLET PO SCH (09:01)
[2021-01-26 10:26] VITALS: BP 118/71
--- NOTE | 2021-01-26 11:43 | DS ---
(1) Closed intertrochanteric fracture of left hip Problem: Acute Qualifiers: Encounter type: subsequent encounter Fracture alignment: displaced Fracture healing: with routine healing Qualified Code(s): S72.142D - Displaced intertrochanteric fracture of left femur, subsequent encounter for closed fracture with routine healing (2) Pre-Operative Examination Problem: Acute (3) Hyponatremia Problem: Acute (4) Seizure disorder Problem: Chronic (5) CAD (coronary artery disease) Problem: Chronic Qualifiers: Coronary Disease-Associated Artery/Lesion type: [place] artery [place] vs. transplanted heart: [place] heart Associated angina: without angina Qualified Code(s): I25.10 - Atherosclerotic heart disease of [place] coronary artery without angina pectoris (6) Hyperlipidemia Problem: Chronic Qualifiers: Hyperlipidemia type: pure hypercholesterolemia Qualified Code(s): E78.00 - Pure hypercholesterolemia, unspecified; E78.0 - Pure hypercholesterolemia (7) Hypertension Problem: Chronic Qualifiers: Hypertension type: essential hypertension Qualified Code(s): I10 - Essential (primary) hypertension (8) Hyperlipidemia Problem: Chronic Qualifiers: Hyperlipidemia type: mixed hyperlipidemia Qualified Code(s): E78.2 - Mixed hyperlipidemia Date of Discharge:: 01/26/21 Hospital Course: Pritesh came to the hospital on 01/23/2021 after ground-level fall which resulted in a left hip fracture. Patient underwent closed reduction, cephalomedullary fixation of his left intertrochanteric femur fracture on 01/24/2021. No complications with the surgery. Patient had mild acute blood loss anemia where his hemoglobin dropped from 15.1 down to 12.9. Patient tolerated the procedure well and his pain has been well controlled on oral medicines. Patient has been accepted to the [facility] facility for rehab. Patient started on Xarelto for anticoagulation which she will be on for 6 weeks. Hydrocodone will be sent in for his pain management. Patient will be on stool softener while on his pain medicine. Patient has history of hyponatremia which is stable at this time. Currently at 128. Patient will also be sent home with salt tablets to be taken daily. Patient's blood pressure has been labile while here the likely due to pain. Majority of his readings have been within normal limits so so no adjustment to his blood pressure medicines needed at this time. Patient will have anterior hip precautions, will need PT and OT in the care home facility. Patient tolerated the procedure well and had an uneventful stay here. Patient does have an imbalance issue though prior to his injury and will need to ambulate with a walker even after he heals and so therapy can work with him on this as well. Patient will follow up with orthopedics in 2 weeks. Recommend MARK hose use on his surgical leg to help with swelling. Besides the addition to the medications including pain medicine, blood thinner, and salt tablets, no changes to his chronic medicines. Procedures Performed: see notes below - Closed reduction, cephalomedullary fixation of his left intertrochanteric hip fracture Results and Findings: Lab Pending Results 01/23/21 11:56: WBC 5.2, RBC 4.30 L, Hgb 15.1, Hct 43.6, MCV 101.4 H, MCH 35.1 H, MCHC 34.6, RDW 13.1, Plt Count 169, MPV 8.1, Immature Gran % (Auto) 0.40, Immature Gran # (Auto) 0.02, Neutrophils % 50.3, Lymphocytes % 29.1, Monocytes % 15.9 H, Eosinophils % 3.7 H, Basophils % 0.6, Nucleated RBC % 0.0, Neutrophils # 2.6, Lymphocytes # 1.50, Monocytes # 0.8, Eosinophils # 0.2, Absolute Basophils 0.0 01/23/21 11:56: Sodium 128 L, Plasma Sodium 128 L, Potassium 4.2, Chloride 95 L, Carbon Dioxide 28.0, Anion Gap 9.2, BUN 7, Creatinine 1.03, Est GFR (Non-Af Amer) 75, BUN/Creatinine Ratio 6.8 L, Random Glucose 121 H, Calcium 8.5, Calcium Adj for Albumin 8.5, Total Bilirubin 1.0, AST 41, ALT 63, Alkaline Phosphatase 123, Creatine Kinase 260 H, Total Protein 6.9, Albumin 3.6 01/23/21 12:00: SARS-CoV-2 (PCR) Not detected 01/24/21 08:45: Sodium 126 L, Plasma Sodium 126 L, Potassium 3.9, Chloride 92 L, Carbon Dioxide 28.1, Anion Gap 9.8, BUN 5 L, Creatinine 0.89, Est GFR (Non-Af Amer) 89, BUN/Creatinine Ratio 5.6 L, Random Glucose 128 H, Calcium 8.3 01/25/21 06:25: WBC 9.0 D, RBC 3.65 L, Hgb 12.9 L, Hct 35.4 L, MCV 97.0, MCH 35.3 H, MCHC 36.4 H, RDW 12.5, Plt Count 120 L, MPV 8.0 01/25/21 06:25: Sodium 129 L, Plasma Sodium 129 L, Potassium 3.9, Chloride 96 L, Carbon Dioxide 27.8, Anion Gap 9.1, BUN 7, Creatinine 1.01, Est GFR (Non-Af Amer) 77, BUN/Creatinine Ratio 6.9 L, Random Glucose 121 H, Calcium 7.9 01/26/21 06:56: Sodium 128 L, Plasma Sodium 128 L, Potassium 3.9, Chloride 95 L, Carbon Dioxide 27.0, Anion Gap 9.9, BUN 8, Creatinine 0.98, Est GFR (Non-Af Amer) 80, BUN/Creatinine Ratio 8.2 L, Random Glucose 118 H, Calcium 8.3 Discharge Location: [facility] Disposition: SNF Condition: Stable Level of Care: SNF Discharge Activity: Activity as tolerated - Anterior hip precautions needed, assistive device for ambulation needed Discharge Diet: General/regular food Detention Therapy: Physical Therapy, Occupation Therapy Referrals: Venkatesh Le DO [Primary Care Provider] - One Week Additional Patient Instructions (free text): To [facility] for PT and OT to evaluate and treat. Follow up [facility] Orthopedic office appointment on FridayFebruary 09 at 9:00am. Ortho Instructions: Continue with anticoagulation-he will need 6 weeks of anticoagulation for DVT prophylaxis. Weightbearing as tolerated with range of motion as tolerated. Keep the wound clean and dry. Use MARK hose on surgical leg. Use assistive device. Prescriptions (Any new or edited meds): HYDROcodone/ACETAMINOPHEN [[place] 5-325] 2 ea PO Q4H PRN #60 tab PRN Reason: Moderate Pain (Pain Scale 4-6) Transmission Status: Received by [facility] Sennosides/Docusate Sodium [Senokot-S] 2 tab PO HS #60 tab Transmission Status: Received by [facility] Sodium Chloride 1 gm PO DAILY #30 tab Transmission Status: Received by [facility] Rivaroxaban [Xarelto] 10 mg PO DAILY #42 tab Transmission Status: Received by [facility] Complete Home Medications List: Complete Home Medication List: Folic Acid 1 mg PO DAILY 03/09/14 Nitroglycerin [Nitrostat] 0.4 mg SUBLINGUAL PRN PRN 03/09/14 Losartan Potassium [Cozaar] 25 mg PO DAILY 10/06/16 levETIRAcetam [Levetiracetam] 250 mg PO BID 10/05/17 Aspirin 81 mg PO DAILY 07/31/18 adalimumab 40 mg/0.8 mL subcutaneous syringe kit 40 mg SUBCUT Q2W 11/02/18 atorvastatin 80 mg tablet 80 mg PO HS tab 02/24/19 metoprolol succinate 100 mg tablet,extended release 24 hr 75 mg PO DAILY tab 10/12/20 carBAMazepine [Tegretol] 800 mg PO HS 01/23/21 Acetaminophen [Tylenol] 1,000 mg PO Q8H PRN tab 01/26/21 HYDROcodone/ACETAMINOPHEN [[place]ullivan 5-325] 2 ea PO Q4H PRN #60 tab 01/26/21 Rivaroxaban [Xarelto] 10 mg PO DAILY #42 tab 01/26/21 Sennosides/Docusate Sodium [Senokot-S] 2 tab PO HS #60 tab 01/26/21 Sodium Chloride 1 gm PO DAILY #30 tab 01/26/21
== END 2021-01-26 13:14 | DRG 481 ==
LOC: ER 11:05 → MS 13:09
PROVIDERS: ADMIT Family Medicine; ATTEND Family Medicine

== ENCOUNTER 2021-03-29 06:25 | Observation (INO) ==
[~2021-03-29 06:25] MED LIST: MORPHINE SULFATE 15 MG TABLET.SA PO PRN; ROPIVACAINE/CLONIDIN/KETOROLAC 50 ML SYRINGE IJ PRN; TRANEXAMIC ACID 1,000 MG in NORMAL SALINE 100 ML IV PRN; ceFAZolin SODIUM 1 GM VIAL IV PRN
[2021-03-29] MEDS ORDERED: ceFAZolin SODIUM 1 GM VIAL ONE (07:02)
[2021-03-29] MEDS ORDERED: ISOPROPYL ALCOHOL 480 APPL BTL MC ONE (07:02)
[2021-03-29] MEDS ORDERED: ROPIVACAINE/CLONIDIN/KETOROLAC 50 ML SYRINGE IJ ONE (07:03)
[2021-03-29] MEDS: RINGER'S SOLUTION,LACTATED 1,000 ML IV PRN ×3 (07:17→09:32)
--- NOTE | 2021-03-29 07:31 | ANES ---
Anesthesia Pre Procedure Eval Vitals/Labs: Last Vital Signs Temp 36.8 C 03/29/21 06:38 Pulse 88 03/29/21 06:38 Resp 16 03/29/21 06:38 BP 155/76 H 03/29/21 06:38 Pulse Ox 98 03/29/21 06:38 HOME MEDICATIONS Folic Acid 1 mg PO DAILY 03/09/14 [Last Taken 03/29/21] Nitroglycerin [Nitrostat] 0.4 mg SL PRN PRN 03/09/14 [Last Taken 07/31/18] Losartan Potassium [Cozaar] 25 mg PO DAILY 10/06/16 [Last Taken 03/29/21] levETIRAcetam [Levetiracetam] 250 mg PO BID 10/05/17 [Last Taken 03/29/21] Aspirin 81 mg PO DAILY 07/31/18 [Last Taken 03/27/21] adalimumab 40 mg/0.8 mL subcutaneous syringe kit 40 mg SUBCUT Q2W 11/02/18 [Last Taken 03/25/21] atorvastatin 80 mg tablet 80 mg PO HS tab 02/24/19 [Last Taken 03/28/21] metoprolol succinate 100 mg tablet,extended release 24 hr 75 mg PO DAILY tab 10/12/20 [Last Taken 03/29/21] carBAMazepine [Tegretol] 800 mg PO HS 01/23/21 [Last Taken 03/28/21] Acetaminophen [Tylenol] 1,000 mg PO Q8H PRN tab 01/26/21 [Last Taken Unknown] Sennosides/Docusate Sodium [Senokot-S] 2 tab PO HS #60 tab 01/26/21 [Last Taken 03/27/21] Durable Medical Equipment See Rx Instructions .MEDSUPPLY #1 ea 02/22/21 [Last Taken Unknown] sodium chloride 1 gram tablet 1,000 mg PO DAILY #30 tab 02/23/21 [Last Taken 03/28/21] hydrocodone 5 mg-acetaminophen 325 mg tablet 1 tab PO Q8H PRN #30 tab 03/19/21 [Last Taken Unknown] tramadol 50 mg tablet 50 mg PO Q6H PRN #20 tab 03/26/21 [Last Taken 03/28/21] Allergies/Adverse Reactions: Allergies Allergy/AdvReac Type Severity Reaction Status Date / Time No Known Drug Allergies Allergy Verified 03/29/21 06:45 - Planned Procedure Planned Procedure: removal deep implant lt hip/cemented lt hip hemiar Medication List Reviewed:: Yes Allergies Verified: Yes Medical History (Last Reviewed 03/29/21 @ 07:30 by Bob Lyle CRNA) Closed intertrochanteric fracture of left hip (Acute) Status post cephalomedullary nailing of left intertrochanteric femur fracture Bilateral cataracts (Chronic) Bilateral carotid bruits (Acute) Scrotal abscess (Acute) Resolving nicely with antibiotics. Dysuria (Chronic) Hyponatremia (Acute) 129 Labyrinthitis (Acute) Left shoulder pain (Chronic) Having CT arthrogram next week. At [facility]. UTI (urinary tract infection) (Acute) Prostatism (Chronic) Nocturia (Chronic) He is up multiple times per night because it is not adequately emptying his bladder. Seizure (Resolved) Myocardial infarction (Resolved) Dupuytren's contracture (Acute) Hyperlipidemia (Chronic) Hypertension (Chronic) COVID-19 vaccine administered Onset Date: 02/14/21 [facility]- Moderna- both doses Surgical History (Last Reviewed 03/29/21 @ 07:31 by Bob Lyle CRNA) H/O transurethral resection of prostate Onset Date: ~08/04/19 Dr Delgadillo-[facility] History of hip surgery Onset Date: ~01/24/21 Closed reduction, cephalo-medullary fixation left intertrochanteric femur fracture Dr. Shetty H/O angioplasty Onset Date: ~2005 2005 Hx of colonoscopy Onset Date: ~2005 Normal Hx of hand surgery bilateral Hx of heart artery stent Onset Date: ~2005 Hx of shoulder surgery left shoulder x's 3: Dr. Shankar and x's 2 Dr. Perry Family History (Last Reviewed 03/29/21 @ 07:31 by Bob Lyle CRNA) Father Prostate cancer Mother Degenerative disc disease - Family Anesthesia History Family History:: no untoward family reactions to anesthesia, no familial bleeding tendencies, no family history of clotting disorders, no family history of premature - Airway/Neck/Teeth Within Normal Limits:: Yes Teeth Condition: poor condition Mallampatti Score: 2 Thyromental (T-M) distance: > 6 cm Mandibulo Hyoid distance: > 3 cm - Respiratory Respiratory Physical: lungs clear Smoking Status: Former smoker Discussed smoking cessation including day of surgery: No Sleep Apnea currently treated: No Sleep Apnea by current assessment: No Discussed Risks/Treatment of MARION: No - Cardiovascular Tolerate Activity: Fair Heart Sounds: S1 & S2, Regular - Gastrointestinal NPO since: mn - Anesthesia Assessment and Plan ASA Class: PS, III Anesthesia Type Plan: Spinal
[2021-03-29] MEDS ORDERED: LIDOCAINE HCL 20 ML VIAL ONE (07:47)
[2021-03-29] MEDS ORDERED: fentaNYL CITRATE/PF 50 MCG/ML AMPUL ONE (07:48)
[2021-03-29] MEDS ORDERED: ONDANSETRON HCL/PF 2 MG/ML VIAL ONE (07:48)
[2021-03-29] MEDS ORDERED: PROPOFOL VIAL IV ONE (07:48)
--- NOTE | 2021-03-29 10:10 | OR ---
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 Removal of deep implants left femur Surgeon: Dinesh Shetty M.D. Forklift Material Handler: Raad Chino PA-C (provided essential set of skilled, educated hands that assisted with transfer, positioning, prepping, draping, retraction, manipulation, placement of implants, irrigation, closure wounds, and application of dressings all of which could not be performed by the available surgical crew) Anesthesia: Spinal Complications: None Specimens: Bone. Implants for disposal Estimated blood loss: 200 milliliters. Retained implants: Depuy Gentry size 6 basic cemented femoral stem. Size 51 millimeter outside diameter self-centering bipolar head with + 5 millimeter cobalt chromium 28 mm femoral head. Indications: Mr. Heredia is a 75-year-old gentleman who previously sustained an intertrochanteric femur fracture. This was treated however he developed a nonunion and malunion with failure of his implants. He developed pain and wished to have this addressed. The plan was for removal of implants and hemiarthroplasty. He wished to proceed with surgical treatment. The risks, benefits, and alternatives discussed were , blood clots, bleeding, infection, nerve/tendon blood vessel/ injury, malposition of components, dislocation and/or instability of joint, intraoperative fracture, postoperative limited range of motion, persistent pain, failure of components, and need for additional procedures. Patient wished to proceed. Consent was obtained after answering all questions. Procedure: After marking the correct extremity on the floor, the patient was taken to the operating room. A timeout was performed. IV antibiotics consisting of Ancef were administered prior to the procedure. A spinal anesthetic was induced by anesthesia. A Breen catheter was inserted. The patient was then transitioned to a lateral position on a well-padded pegboard. An axillary roll was placed. The head was in neutral position. The non- operative down leg was well-padded with SCD and MARK hose in place. The arms were supported and padded to protect from any undue pressure on the bony prominences and nerves. Well-padded anterior and posterior pelvic and chest posts were secured in order to maintain a stable position of the pelvis. This was placed so that the pelvis was perpendicular to the floor. The body was in line with the pelvis. Once it was felt that we had protected all the bony prominences and the patient was well secured with a safety belt as well, the leg was pre-scrubbed with alcohol, prepped and draped in a standard sterile fashion. A standard anterior lateral hip incision was marked out over the greater trochanter. Ioban drapes were then placed. The skin incision was then made. Sharp dissection with a scalpel utilizing cautery for hemostasis was carried out down to the gluteus and iliotibial band fascia. This was split in line with the skin incision. The greater trochanter bursa was excised. His previously placed InterTAN nail interference screws had backed out and these were removed. The distal interlock screw was removed through percutaneous hole in the nail was then excised. Prior to removing the nail the hip was dislocated and it was noted that there was a nonunion at the intertrochanteric region. The anterior and posterior margins of the abductor tendon were identified. The anterior 1/2- 1/3 of the tendon was tagged and reflected off the greater trochanter leaving a sleeve of tendon for repair at the completion of the case. This exposed the underlying hip joint capsule. An inverted T-type capsulotomy was made extending this up to the brim of the acetabulum. We encountered a hematoma at this point confirming an acute fracture as well as noted nonunion of the fracture. Using Homans to assist with elevation of the soft tissues off the anterior, superior, and inferior aspects of the femoral neck, the hip was then placed in a figure 4 position for a femoral neck cleanup cut to be made. With the leg in an externally rotated and adducted position, the cutting flag was utilized in order to anastacia for a standard femoral neck cut approximately a fingerbreadth above the level of the lesser trochanter. This was done while protecting the surrounding soft tissues with Homans. The femoral head was then removed and sized for guidance on the size of the bipolar head. It was noted that there was no significant loss of articular cartilage on both the femoral head and weightbearing portions of the acetabulum. We then returned the leg to the table and turned our attention to the acetabulum. While protecting the surrounding soft tissues, the labrum and remaining tissue in the fovea were excised using a scalpel and cautery. The acetabulum was then protected with a sponge while we returned our attention to the femur. With the leg in a figure 4 position utilizing Homans for soft tissue protection, a box cutting osteotome, followed by Jerome awulysses, followed by serial broaches were utilized in order to prepare the femur. It was found that a size 6 broach gave good axial and rotational stability. The proximal femur was visualized to ensure that there were no signs of fracture. A series of heads were trialed. It was found that a + 5 mm femoral head gave good overall stability. There was minimal longitudinal instability. Hip range of motion was able to reach full extension and external rotation to greater than 75 degrees prior to impingement along the posterior acetabulum. The hip was able to be flexed to greater than 90 degrees with internal rotation greater than 60 degrees prior to anterior impingement. The limb lengths were near equal based on comparison to the contralateral side . At this point it was felt these were the appropriately sized femoral components as well as neck and femoral head. The trial implants were removed. A canal cement plug was placed distally and the canal was thoroughly irrigated using pulsatile vacuum brush device. The canal was then thoroughly dried with a suction device. The cement was vacuum mixed per the it teacher's instructions and placed into a cement gun. Cement was then placed in the dry irrigated femur using modern cementing technique as well as using a pressurizing device. The stem was then placed in the appropriate version compared to the [place] anatomy and held in place while the cement cured and the extruded cement was removed. Once the cement was fully cured, we ensured that the stem was stable and that there were no signs of fracture. The remaining extruded cement was removed, and the joint and the capsule were thoroughly evaluated to ensure there are no cement fragments. The final femoral bipolar head was then impacted in the place. The hip was then reduced and seated completely. The capsule was repaired with a single interrupted #1 Vicryl. The abductor tendon was repaired to the greater trochanter utilizing #1 Vicryl. The fascia was closed with interrupted #1 Vicryl and Stratafix barbed suture. The wounds were thoroughly irrigated as we closed in layers. The deep and subcutaneous fat layers were closed with 0 Vicryl. The subcutaneous tissue was closed with a running 3-0 Vicryl and the skin with olga. All sponge, needle, blade, and instrument counts were correct prior to closing the wounds. Sterile dressings consisting of Xeroform, 4 x 4's, ABD, and tape were applied. The patient was awoken and transferred to her hospital bed and then to the postanesthesia care unit in stable condition. Postoperative condition: The plan is to return to the medical/surgical inpatient floor postoperatively. Postoperatively 24 hours of IV antibiotics, pain control, physical therapy, occupational therapy, and medical comanagement will be utilized. Patient will be weightbearing as tolerated with anterior hip precautions. Postoperative films will be obtained in the recovery room.
[2021-03-29] MEDS ORDERED: DEXTROSE 5%-LACTATED RINGERS 1,000 ML IV PRN (10:11)
[2021-03-29] MEDS ORDERED: ZOLPIDEM TARTRATE 5 MG TABLET PO PRN (10:11)
[2021-03-29] MEDS ORDERED: ACETAMINOPHEN 500 MG TABLET PO PRN (10:11)
[2021-03-29] MEDS ORDERED: MORPHINE SULFATE 2 MG/ML DISP.SYRIN IV PRN (10:11)
[2021-03-29] MEDS ORDERED: MAGNESIUM HYDROXIDE 30 ML UDC PO PRN (10:11)
[2021-03-29] MEDS ORDERED: MAG HYDROX/ALUMINUM HYD/SIMETH 30 ML UDC PO PRN (10:11)
[2021-03-29] MEDS ORDERED: ONDANSETRON HCL/PF 2 MG/ML VIAL IV PRN (10:11)
[2021-03-29] MEDS ORDERED: diphenhydrAMINE HCL 50 MG/ML VIAL IV PRN (10:11)
[2021-03-29] MEDS ORDERED: NITROGLYCERIN 0.4 MG/TAB BTL SL PRN (10:13)
--- NOTE | 2021-03-29 10:43 | ANES ---
Post Anesthesia Discharge - Transfer of Care Transfer of Care handoff given to nurse: Yes - Discharge from PACU Discharge from PACU when meets criteria: Yes - Discharge to ASU Discharge to ASU-no complications/pt stable: Yes
[2021-03-29] MEDS: ceFAZolin SODIUM 1 GM in DEXTROSE 5 % IN WATER 100 ML IV SCH ×6 (11:36→23:26)
[2021-03-29] MEDS: KETOROLAC TROMETHAMINE 15 MG/ML VIAL IV SCH ×3 (11:36→21:21)
--- NOTE | 2021-03-29 12:16 | ANES ---
Post Anesthesia Assessment - Vital Signs Vitals: Last Vital Signs Temp 35.9 C L 03/29/21 11:05 Pulse 85 03/29/21 11:05 Resp 16 03/29/21 11:05 BP 117/67 03/29/21 11:05 Pulse Ox 100 03/29/21 11:05 Airway Patency: Normal - Mental Status Level Of Consciousness: Awake - Pain Level Pain Score: 0 - N/V Assessment Nausea/Vomiting Presence: None Dehydration:: No
[2021-03-29] MEDS: oxyCODONE HCL/ACETAMINOPHEN 1 TAB TABLET PO PRN (15:32)
[2021-03-29] MEDS ORDERED: SENNOSIDES/DOCUSATE SODIUM 1 TAB TABLET PO SCH (21:00)
[2021-03-29] MEDS ORDERED: carBAMazepine 200 MG TABLET PO SCH (21:00)
[2021-03-29] MEDS ORDERED: ROSUVASTATIN CALCIUM 20 MG TABLET PO SCH (21:00)
[2021-03-29] MEDS: levETIRAcetam 250 MG TABLET PO SCH (21:21)
[2021-03-30] MEDS: KETOROLAC TROMETHAMINE 15 MG/ML VIAL IV SCH ×2 (03:46→10:09)
[2021-03-30 06:17] LABS: Hematocrit 31.3 % (42.0-52.0); Hemoglobin 10.8 gm/dL (13.5-18.0); Mean Cell Volume 101.6 fl (78-100); Mean Corpuscular Hemoglobin 35.1 pg (27-31); Mean Corpuscular Hgb Conc 34.5 g/dl (32-36); Mean Platelet Volume 8.1 fl (8-11.3); Platelet Count 186 K/mm3 (150-450); Red Blood Count 3.08 M/mm3 (4.7-6.0); Red Cell Distribution Width 12.5 % (11.5-14.0); White Blood Count 7.7 K/mm3 (4.0-10.5)
[2021-03-30 06:26] LABS: Anion Gap 6.5 mmol/L (6.8-13.8); Carbon Dioxide 28.6 mmol/L (24-32.6); Estimated Creat Clear 77.6; Potassium 4.1 mmol/L (3.4-4.6)
[2021-03-30] MEDS: oxyCODONE HCL/ACETAMINOPHEN 1 TAB TABLET PO PRN (07:00)
[2021-03-30] MEDS: levETIRAcetam 250 MG TABLET PO SCH (08:18)
[2021-03-30] MEDS ORDERED: LOSARTAN POTASSIUM 50 MG TABLET PO SCH (09:00)
[2021-03-30] MEDS ORDERED: FOLIC ACID 1 MG TABLET PO SCH (09:00)
[2021-03-30] MEDS ORDERED: METOPROLOL SUCCINATE 25 MG TABLET.SA PO SCH (09:00)
[2021-03-30] MEDS ORDERED: SODIUM CHLORIDE 1 GM TABLET PO SCH (09:00)
[2021-03-30] MEDS ORDERED: ENOXAPARIN SODIUM 40 MG/0.4 ML SYRG SC SCH (09:11)
--- NOTE | 2021-03-30 11:50 | DS ---
(1) Status post left hip replacement Problem: Acute (2) CAD (coronary artery disease) Problem: Chronic Qualifiers: (3) Hyperlipidemia Problem: Chronic Qualifiers: (4) Hypertension Problem: Chronic Qualifiers: Date of Discharge:: 03/30/21 Hospital Course: Mr. Hanson was admitted to the floor after undergoing left lizeth-arthroplasty a fter removal of deep implants. Tolerated this well. Was admitted to the floor postoperatively for 24 hours of IV antibiotics, pain control, medical comanagement, and occupational and physical therapy. OT and PT were consulted to assist with activities of daily living and ambulation. Was made weightbearing as tolerated with range of motion as tolerated utilizing anterior hip precautions. Pain was initially controlled with IV regimen. This was transitioned to oral once tolerating a by mouth intake. Was resumed on home diet and medications. Had a Breen catheter inserted and the operating room which was discontinued on postoperative day 1. Lovenox SCD and MARK hose were utilized for DVT prophylaxis. Vital signs remained stable to the hospital course. Serial labs were obtained which showed a final hemoglobin of 10.8 grams. BMP was reviewed and was stable. Physical examination throughout the hospital course showed an extremity that had sensation that was intact to light touch, palpable pulses, a benign wound, motor intact to the toes, ankle, and knee. Once an oral pain regimen was tolerated and physical therapy goals were met, it was felt that they were stable for discharge to home. Instructions: Continue with weightbearing as tolerated and range of motion as tolerated utilizing anterior hip precautions.. Keep wound clean and dry. If you note any drainage or for comfort you can cover with dry gauze and tape. Change every 2-3 days as needed. Continue with physical therapy. Resume home diet. Report any fever over 101.5 Fahrenheit, uncontrolled pain, increased drainage, foul odor of drainage, new or increased calf pain or shortness of breath, or any other significant complaints. A 325mg dialy aspirin will be started after finishing anticoagulation if not allergic. Continue with MARK hose on the operative extremity until instructed otherwise. No driving until instructed otherwise. Follow up in approximately 10-14 days. Procedures Performed: see notes below List Procedures: Removal of deep implant left hip, left hip hemiarthroplasty Results and Findings: Lab Pending Results 03/30/21 06:10: WBC 7.7, RBC 3.08 L, Hgb 10.8 L, Hct 31.3 L, MCV 101.6 H, MCH 35.1 H, MCHC 34.5, RDW 12.5, Plt Count 186, MPV 8.1 03/30/21 06:10: Sodium 128 L, Plasma Sodium 128 L, Potassium 4.1, Chloride 97, Carbon Dioxide 28.6, Anion Gap 6.5 L, BUN 9, Creatinine 0.82, Est GFR (Non-Af Amer) 98, BUN/Creatinine Ratio 11.0, Random Glucose 125 H, Calcium 8.0 Discharge Location: Home Disposition: Home self-care Condition: Good Discharge Activity: Activity as tolerated, Weight bearing, Other - Utilizing wheeled walker and following anterior hip precautions Discharge Diet: Low salt, Low fat/chol Referrals: Venkatesh Le DO [Primary Care Provider] - Additional Patient Instructions (free text): Physical Therapy at [facility] outpatient rehab department on FridayApril 02 at 1:00pm. Follow up [facility] Orthopedic office appointment on FridayApril 11 at 1:15pm. Prescriptions (Any new or edited meds): Enoxaparin Sodium [Lovenox] 40 mg SC Q24H #7 disp.syrin Transmission Status: Pending to [facility] oxyCODONE HCL/ACETAMINOPHEN [Percocet 5 MG/325 MG] 2 tab PO Q4H PRN #42 tab PRN Reason: Moderate Pain (Pain Scale 4-6) Transmission Status: Sent to [facility] Sennosides/Docusate Sodium [Senokot-S] 2 tab PO HS #30 tab Transmission Status: Pending to [facility] Ondansetron HCl [Zofran] 4 mg PO QID PRN #30 tab PRN Reason: Nausea Transmission Status: Pending to [facility] Complete Home Medications List: Complete Home Medication List: Folic Acid 1 mg PO DAILY 03/09/14 Nitroglycerin [Nitrostat] 0.4 mg SL PRN PRN 03/09/14 Losartan Potassium [Cozaar] 25 mg PO DAILY 10/06/16 levETIRAcetam [Levetiracetam] 250 mg PO BID 10/05/17 Aspirin 81 mg PO DAILY 07/31/18 adalimumab 40 mg/0.8 mL subcutaneous syringe kit 40 mg SUBCUT Q2W 11/02/18 atorvastatin 80 mg tablet 80 mg PO HS tab 02/24/19 metoprolol succinate 100 mg tablet,extended release 24 hr 75 mg PO DAILY tab 10/12/20 carBAMazepine [Tegretol] 800 mg PO HS 01/23/21 Acetaminophen [Tylenol] 1,000 mg PO Q8H PRN tab 01/26/21 Sennosides/Docusate Sodium [Senokot-S] 2 tab PO HS #60 tab 01/26/21 Durable Medical Equipment See Rx Instructions .MEDSUPPLY #1 ea 02/22/21 sodium chloride 1 gram tablet 1,000 mg PO DAILY #30 tab 02/23/21 Enoxaparin Sodium [Lovenox] 40 mg SC Q24H #7 disp.syrin 03/30/21 Ondansetron HCl [Zofran] 4 mg PO QID PRN #30 tab 03/30/21 Sennosides/Docusate Sodium [Senokot-S] 2 tab PO HS #30 tab 03/30/21 oxyCODONE HCL/ACETAMINOPHEN [Percocet 5 MG/325 MG] 2 tab PO Q4H PRN #42 tab 03/30/21 Amb Orders for Discharge: PT Evaluation and Treatment* Facility: [facility], Location: Rehabilitation Services
[2021-03-30 13:42] VITALS: BP 107/63
== END 2021-03-30 13:12 | disposition home or self-care (01) ==
LOC: MS 06:25 → SUR 06:25 → EDSTATUS 08:00
PROVIDERS: ADMIT Orthopaedic Surgery; ATTEND Orthopaedic Surgery
DX: S72.142S Displaced intertrochanteric fracture of left femur, sequela; I25.10 Atherosclerotic heart disease of native coronary artery without angina pectoris; T84.84XA Pain due to internal orthopedic prosthetic devices, implants and grafts, initial encounter; E78.5 Hyperlipidemia, unspecified; Z96.642 Presence of left artificial hip joint; I10 Essential (primary) hypertension